=== PATIENT | male | born 1965 | race Asian ===

== ENCOUNTER 2018-10-07 10:06 | Day surgery (SDC) | payer OTHER ==
[~2018-10-07] VITALS: Ht 167.6 cm; Wt 54.2 kg
[2018-10-07 10:49] VITALS: Ht 167.6 cm; Wt 54.2 kg
[2018-10-07] MEDS ORDERED: BLOOD PRESSURE MED (11:00)
[2018-10-07] MEDS ORDERED: DIABETES MED (11:01)
[2018-10-07] MEDS ORDERED: CHOLESTEROL MED (11:01)
[2018-10-07 11:21] VITALS: BP 148/81; PULSE 63; RESP 18
[2018-10-07] MEDS ORDERED: MIDAZOLAM 1 MG/ML 2 ML INJ ONE (12:33)
[2018-10-07] MEDS ORDERED: FENTAnyl 50 MCG/ML VIAL ONE (12:33)
== END 2018-10-07 12:47 | disposition home or self-care (01) ==
LOC: GIL 10:06
PROVIDERS: ATTEND Internal Medicine Gastroenterology
DX: Z12.11 Encounter for screening for malignant neoplasm of colon (principal); K64.8 Other hemorrhoids; I10 Essential (primary) hypertension; E11.9 Type 2 diabetes mellitus without complications
CPT/HCPCS: 45378; 82962; J2250; J3010